=== PATIENT | female | born 2000 | race African-American/Black ===

== ENCOUNTER 2019-05-01 21:30 | Emergency (ER) | payer OTHER ==
[~2019-05-01] VITALS: Ht 172.7 cm; Wt 68.2 kg
[2019-05-02] MEDS ORDERED: NS 1,000 ML IV ONE (00:45)
[2019-05-02] MEDS ORDERED: dexameTHASONE 20 MG/5 ML VIAL (J1100) IV ONE (00:45)
[2019-05-02 01:19] LABS: BASO % 0.2 % (0.0-1.0); EOS # 0.1 10^3/uL (0.0-0.50); EOS % 0.8 % (0.0-3.0); HEMATOCRIT 39.7 % (36.0-47.0); LYMPH # 0.7 10^3/uL (1.5-6.5); MEAN CORPUSCULAR HEMOGLOBIN 27.7 pg (27.0-33.0); MEAN CORPUSCULAR HGB CONC 32.7 g/dl (32.0-36.5); MEAN CORPUSCULAR VOLUME 84.6 fl (80.0-96.0); MONO # 0.8 10^3/uL (0.0-0.8); MONO % 7.4 % (0.0-5.0); NEUTROPHILS # 8.9 10^3/uL (1.8-7.7); NEUTROPHILS % 83.9 % (36.0-66.0); PLATELET COUNT, AUTOMATED 171 10^3/uL (150-450); RED BLOOD COUNT 4.69 10^6/uL (4.00-5.40); WHITE BLOOD COUNT 10.6 10^3/uL (4.0-10.0)
[2019-05-02 01:35] VITALS: BP 111/53
[2019-05-02 01:52] LABS: BLOOD UREA NITROGEN 9 MG/DL (7-18); CALCIUM LEVEL 8.8 MG/DL (8.5-10.1); CARBON DIOXIDE LEVEL 25 MEQ/L (21-32); CHLORIDE LEVEL 106 MEQ/L (98-107); CREATININE FOR GFR 0.78 MG/DL (0.55-1.30); GLUCOSE, FASTING 97 MG/DL (70-100); POTASSIUM SERUM 3.5 MEQ/L (3.5-5.1); SODIUM LEVEL 140 MEQ/L (136-145)
[2019-05-02] MEDS ORDERED: METOCLOPRAMIDE INJ 10MG/2ML VIAL (J2765) IV ONE (03:15)
[2019-05-02] MEDS ORDERED: KETOROLAC 30 MG/ML VIAL (J1885) IV ONE (03:15)
[2019-05-02] MEDS ORDERED: diphenhydrAMINE INJ 50MG/ML VIAL (J1200) IV ONE (03:15)
--- NOTE | 2019-05-02 04:27 | REPVR ---
EXAM: CT Head Without Contrast EXAM DATE/TIME: 05/02/2019 3:07 AM CLINICAL HISTORY: 18 years old, female; Sudden worsening headache, known meningioma right side TECHNIQUE: Imaging protocol: Axial computed tomography images of the head without contrast. Radiation optimization: All CT scans at this facility use at least one of these dose optimization techniques: automated exposure control; mA and/or kV adjustment per patient size (includes targeted exams where dose is matched to clinical indication); or iterative reconstruction. COMPARISON: No relevant prior studies available. FINDINGS: Brain: There is a calcified extra-axial mass measuring approximately 13 mm in the right side of the quadrigeminal plate cistern (images 10-14 of the axial series 201). There is a 12 mm calcified extra-axial mass in the right middle cranial fossa anterior to the right temporal lobe (images 5-6 of the axial series 201). A 5 mm calcified extra-axial mass is also noted in the left cavernous sinus (image 5 of the axial series 201). There is no evidence for an acute large vessel territorial infarct, intracranial hemorrhage, mass effect, or herniation. The cortical gyration pattern, basal ganglia, thalami, and cerebellum are normal in appearance. Brainstem: Unremarkable. Midline shift: There is no midline shift. Ventricles: Normal. No ventriculomegaly. Bones/joints: Unremarkable. No acute fracture. Sinuses: Visualized sinuses are unremarkable. No fluid levels. Mastoid air cells: Visualized mastoid air cells are well aerated. No mastoid effusion. Soft tissues: Unremarkable. IMPRESSION: 1. No acute intracranial abnormality. 2. Calcified extra-axial masses in the right side of the quadrigeminal plate cistern, right middle cranial fossa anterior to the right temporal lobe, and left cavernous sinus as detailed above, which may represent meningiomas. No mass effect, midline shift, or herniation. Electronically signed by: Robbi Mcclain On 05/02/2019 04:26:44 AM
== END 2019-05-02 05:27 | disposition home or self-care (01) ==
LOC: M ED 21:30
DX: R51 Headache (principal); D32.9 Benign neoplasm of meninges, unspecified
CPT/HCPCS: 70450; 80048; 85025; 96361; 96374; 96375; 99284; J1100; J1200; J1885; J2765

== ENCOUNTER 2019-05-03 03:03 | Emergency (ER) | payer OTHER ==
[~2019-05-03] VITALS: Ht 172.7 cm; Wt 68.2 kg
[2019-05-03] MEDS ORDERED: diphenhydrAMINE INJ 50MG/ML VIAL (J1200) IV ONE (04:15)
[2019-05-03] MEDS ORDERED: METOCLOPRAMIDE INJ 10MG/2ML VIAL (J2765) IV ONE (04:15)
[2019-05-03] MEDS ORDERED: NS 1,000 ML IV ONE (04:15)
[2019-05-03] MEDS ORDERED: KETOROLAC 30 MG/ML VIAL (J1885) IV ONE (04:15)
[2019-05-03 06:21] VITALS: BP 111/62
--- NOTE | 2019-05-07 15:16 | ED PDOC ---
Post-Departure Follow-Up dr garcia and anton baker faxed formal report of ct head for fu Nicole Goodwin MD May 07, 2019 15:16
== END 2019-05-03 06:23 | disposition home or self-care (01) ==
LOC: M ED 03:03
DX: R51 Headache (principal); D32.9 Benign neoplasm of meninges, unspecified
CPT/HCPCS: 96361; 96374; 96375; 99284; J1200; J1885; J2765

== ENCOUNTER 2019-07-22 05:06 | Emergency (ER) | payer OTHER ==
[~2019-07-22] VITALS: Ht 172.7 cm; Wt 69.3 kg
[2019-07-22] MEDS ORDERED: dexameTHASONE 4 MG/ML 1ML VIAL (J1100) IV ONE (06:15)
[2019-07-22] MEDS ORDERED: MAG SULF 1GM/100ML (MAG RUN) 1 GM in IV 1 EA IV ONE (06:15)
[2019-07-22] MEDS ORDERED: METOCLOPRAMIDE INJ 10MG/2ML VIAL (J2765) IV ONE (06:15)
[2019-07-22] MEDS ORDERED: KETOROLAC 30 MG/ML VIAL (J1885) IV ONE (06:15)
[2019-07-22] MEDS ORDERED: diphenhydrAMINE INJ 50MG/ML VIAL (J1200) IV ONE (06:15)
[2019-07-22] MEDS ORDERED: NS 1,000 ML IV ONE (06:15)
[2019-07-22] MEDS ORDERED: IBUP80TA PO ×2 (08:12→08:45)
[2019-07-22] MEDS ORDERED: PROM25TA12 PO ×2 (08:12→08:45)
[2019-07-22 08:51] VITALS: BP 101/58
== END 2019-07-22 08:53 | disposition home or self-care (01) ==
LOC: M ED 05:06
DX: G43.909 Migraine, unspecified, not intractable, without status migrainosus (principal); D32.0 Benign neoplasm of cerebral meninges
CPT/HCPCS: 96361; 96365; 96375; 99284; J1100; J1200; J1885; J2765; J3475

== ENCOUNTER 2019-07-30 13:01 | Emergency (ER) | payer OTHER ==
[~2019-07-30] VITALS: Ht 172.7 cm; Wt 68.2 kg
[~2019-07-30 13:01] MED LIST: IBUP80TA PO; PROM25TA12 PO
--- NOTE | 2019-07-30 13:55 | REP ---
CT brain without contrast: History: Headache, known right-sided meningioma. Comparison CT study May 02, 2019. No other comparisons. CT findings: Digital preliminary casing material weigher radiograph is unremarkable. Bone window settings demonstrate an intact bony calvarium. There are several areas of dural calcification and/or dural ossification involving the anterior inferior temporal lobes, the cavernous sinus regions bilaterally, and the anterior edge of the right side of the tentorium. These are unchanged from May 02, 2019. There is no evidence of regional mass effect or edema. Zamora-white differentiation pattern is intact. There is no evidence of intracranial hemorrhage. No extra-axial fluid collection is seen. No infarct or midline shift is observed. Impression: Several areas of benign dural calcification/ossification bilaterally in the temporal lobes, bilaterally in the region of the cavernous sinus, and along the right anterior edge of the tentorium unchanged from May 02, 2019. No acute intracranial abnormality. Electronically Signed by Talon Fulton MD 07/30/2019 05:18 P
[2019-07-30 16:21] VITALS: BP 134/82
[2019-07-31] MEDS ORDERED: COLA100C5 PO (05:29)
== END 2019-07-30 18:17 | disposition left against medical advice (07) ==
LOC: M ED 13:01
DX: R19.5 Other fecal abnormalities (principal); R51 Headache; D32.0 Benign neoplasm of cerebral meninges; Z53.21 Procedure and treatment not carried out due to patient leaving prior to being seen by health care provider

== ENCOUNTER 2019-07-30 20:29 | Emergency (ER) | payer OTHER ==
[~2019-07-30] VITALS: Ht 172.7 cm; Wt 68.2 kg
[2019-07-31] MEDS ORDERED: COLA100C5 PO (05:29)
[2019-07-31] MEDS ORDERED: KETOROLAC TROMETHAMINE 10 MG TAB PO ONE (05:30)
[2019-07-31] MEDS ORDERED: diphenhydrAMINE 25 MG CAP PO ONE (05:30)
[2019-07-31] MEDS ORDERED: METOCLOPRAMIDE 10 MG TAB PO ONE (05:30)
[2019-07-31 05:38] VITALS: BP 120/62
== END 2019-07-31 05:39 | disposition home or self-care (01) ==
LOC: M ED 20:29
DX: K60.2 Anal fissure, unspecified (principal); G43.909 Migraine, unspecified, not intractable, without status migrainosus; D32.0 Benign neoplasm of cerebral meninges

== ENCOUNTER 2019-08-24 04:53 | Emergency (ER) | payer OTHER ==
[~2019-08-24] VITALS: Ht 172.7 cm; Wt 68.2 kg
[~2019-08-24 04:53] MED LIST changes: +COLA100C5 PO
[2019-08-24 07:00] LABS: BASO # 0.1 10^3/uL (0.0-0.2); BASO % 0.8 % (0.0-1.0); EOS # 0.3 10^3/uL (0.0-0.5); EOS % 3.8 % (0.0-3.0); HEMATOCRIT 41.5 % (36.0-47.0); HEMOGLOBIN 13.1 g/dl (12.0-15.5); LYMPH # 1.3 10^3/uL (1.5-5.0); LYMPH % 19.6 % (24.0-44.0); MEAN CORPUSCULAR HEMOGLOBIN 27.3 pg (27.0-33.0); MEAN CORPUSCULAR HGB CONC 31.6 g/dl (32.0-36.5); MEAN CORPUSCULAR VOLUME 86.6 fl (80.0-96.0); MONO # 0.4 10^3/uL (0.0-0.8); MONO % 5.5 % (0.0-5.0); NEUTROPHILS # 4.6 10^3/uL (1.5-8.5); NEUTROPHILS % 69.8 % (36.0-66.0); PLATELET COUNT, AUTOMATED 328 10^3/uL (150-450); RED BLOOD COUNT 4.79 10^6/uL (4.00-5.40); WHITE BLOOD COUNT 6.5 10^3/uL (4.0-10.0)
[2019-08-24 07:06] VITALS: BP 135/84
[2019-08-24 07:19] LABS: HCG, SERUM QUALITATIVE NEGATIVE (NEGATIVE)
[2019-08-24 07:30] LABS: BLOOD UREA NITROGEN 12 MG/DL (7-18); CALCIUM LEVEL 8.7 MG/DL (8.5-10.1); CARBON DIOXIDE LEVEL 29 MEQ/L (21-32); CHLORIDE LEVEL 106 MEQ/L (98-107); CREATININE FOR GFR 0.77 MG/DL (0.55-1.30); FREE T4 0.96 NG/DL (0.78-1.33); GLUCOSE, FASTING 88 MG/DL (70-100); POTASSIUM SERUM 4.4 MEQ/L (3.5-5.1); SODIUM LEVEL 139 MEQ/L (136-145); THYROID STIMULATING HORMONE 0.683 uIU/ML (0.463-3.98)
[2019-08-24] MEDS ORDERED: NS 1,000 ML IV ONE (08:00)
--- NOTE | 2019-08-24 20:04 | ECGEPIP ---
[facility] - ED Test Date: 2019-08-24 Pat Name: SHANDA MAZARIEGOS Department: Room: - Gender: Female [employer] Observer: emir : 2000 Requested By: Nicole Galindo Order Number: [id number] Reading MD: Nicole Galindo Measurements Intervals [place] Rate: 70 P: 16 AL: 149 QRS: 56 QRSD: 83 T: 23 QT: 388 QTc: 421 Interpretive Statements SINUS RHYTHM POSSIBLE RIGHT VENTRICULAR CONDUCTION DELAY EARLY REPOLARIZATION NONSPECIFIC ST T WAVE CHANGES NO PRIOR ECG FOR COMPARISON Electronically Signed on 08-24-2019 20:03:59 EDT by Nicole Galindo
== END 2019-08-24 09:08 | disposition home or self-care (01) ==
LOC: M ED 04:53
DX: R55 Syncope and collapse (principal)

== ENCOUNTER 2020-01-29 07:34 | Emergency (ER) | payer OTHER ==
[~2020-01-29] VITALS: Ht 172.7 cm; Wt 70.4 kg
[2020-01-29 07:35] VITALS: BP 131/80
== END 2020-01-29 08:18 | disposition home or self-care (01) ==
LOC: M ED 07:34
DX: M79.641 Pain in right hand (principal); M79.642 Pain in left hand; X31.XXXA Exposure to excessive natural cold, initial encounter; Y92.89 Other specified places as the place of occurrence of the external cause

== ENCOUNTER → 2020-09-15 | Outpatient (CLI) | payer OTHER ==
--- NOTE | 2020-09-16 13:31 | ECHO ---
DATE OF PROCEDURE: 09/15/2020 Age: 20 Gender: Female Height: 172 cm Weight: 70.3 kg REFERRING PHYSICIAN: Dr. Haja Jones. INDICATION: Syncope. MEASUREMENTS: 2D Measurements: Interventricular septum 0.82 cm Posterior wall 0.92 cm Left ventricle diastole 4.5 cm Aortic root 2.5 cm Left atrium 2.9 cm Left atrial volume index 11 cm Inferior vena cava 1.7 cm (more than 50% respiratory variation) Doppler Measurements: No aortic stenosis No aortic regurgitation Mitral E velocity 94.1 cm/s Mitral A velocity 26.3 cm/s No mitral stenosis No mitral regurgitation Mitral deceleration time 217 m/s Aortic valve velocity 110 cm/s LVOT velocity 89.2 cm/s No tricuspid regurgitation Very mild pulmonic regurgitation Pulmonary artery acceleration time 211 m/s MITRAL ANNULAR TISSUE DOPPLER E prime septal 13.5 cm/s, E prime lateral 13.7 cm/s DESCRIPTION: Rhythm was sinus. Image quality was good. No pericardial effusion. This was a 2D, M-mode, color flow Doppler, and pulsed wave Doppler examination including mitral annular tissue Doppler. CONCLUSIONS: 1. Normal echocardiogram Doppler. 2. Normal left ventricle internal dimensions and wall thickness. Normal regional wall motion and wall thickening. Normal left ventricular (LV) systolic function. Left ventricular ejection fraction (LVEF) 60% by visual estimate. Supra-normal left ventricular (LV) diastolic function. MTDD
== END ==
LOC: M CARPUL 08:02
PROVIDERS: ATTEND Internal Medicine
DX: R55 Syncope and collapse (principal)